=== PATIENT | female | born 1935 | race Caucasian/White ===

== ENCOUNTER 2021-11-25 15:04 | Observation (INO) ==
[2021-11-25] MEDS ORDERED: hydrALAZINE 20 MG/1 ML VIAL IV STA (15:44)
[2021-11-25 16:01] LABS: Basophils # 0.1 10*3/uL (0.0-0.2); Basophils % 0.8 % (0.0-0.8); Eosinophils # 0.3 10*3/uL (0.0-0.87); Eosinophils % 4.8 % (0.00-10.9); Hematocrit 32.6 VOL% (35.7-47.0); Hemoglobin 10.9 GM/DL (12.0-16.0); Immature Granulocytes % 0.2 %; Immature Granulocytes Absolute 0.01 #; Lymphocytes # 1.5 10*3/uL (1.4-4.0); Lymphocytes % 24.3 % (21.3-54.2); Mean Corpuscular HGB Conc 33.4 GM/DL (32-36); Mean Corpuscular Volume 87.9 FL (87-102); Mean Platelet Volume 11.3 FL (9.6-12.0); Monocytes # 0.4 10*3/uL (0.11-0.8); Monocytes % 6.3 % (1.7-12.7); Neutrophils % 63.6 % (38.7-73.9); Platelet Count 164 T/CUMM (130-400); Red Blood Count 3.71 MC/CUMM (3.8-5.5); Red Cell Distribution Width 13.2 % (9.3-17.3); White Blood Count 6.2 T/CUMM (4-12)
[2021-11-25] MEDS ORDERED: ACETAMINOPHEN 325 MG TABLET ONE (16:11)
[2021-11-25 16:41] LABS: Alanine Aminotransferase 18 U/L (13-56); Albumin 4.1 G/DL (3.4-5.0); Alkaline Phosphatase 75 U/L (45-117); Aspartate Amino Transferase 20 U/L (0-37); Bilirubin,Total < 0.39 MG/DL (0.20-1.00); Blood Urea Nitrogen 18 MG/DL (7-18); Calcium 9.7 MG/DL (8.5-10.1); Carbon Dioxide 26 MMOL/L (21-32); Chloride 103 MMOL/L (98-107); Estimated Glom Filtration Rate 56 ML/MIN; Glucose 125 MG/DL (74-106); Osmolality,Calculated 279.5 MOS/KG (273-304); Potassium 3.7 MMOL/L (3.5-5.1); Sodium 139 MMOL/L (136-145)
[2021-11-25] MEDS ORDERED: NAPROXEN 500 MG TABLET ONE ×2 (17:38→17:40)
[2021-11-25] MEDS ORDERED: ACETAMINOPHEN 325 MG TABLET PO ONE (17:59)
[2021-11-25] MEDS ORDERED: NAPROXEN 500 MG TABLET PO STA (18:00)
[2021-11-25] MEDS ORDERED: hydrALAZINE 20 MG/1 ML VIAL IV PRN (19:17)
[2021-11-25] MEDS ORDERED: ONDANSETRON 4 MG/2 ML VIAL IV PRN (19:17)
[2021-11-25] MEDS ORDERED: ACETAMINOPHEN 325 MG TABLET PO PRN (19:17)
[2021-11-25] MEDS ORDERED: GLUCAGON 1 MG VIAL IM PRN (19:17)
[2021-11-25] MEDS ORDERED: LORATADINE 10 MG TABLET PO PRN (19:22)
[2021-11-25] MEDS ORDERED: DEXTROSE 10% 250 ML BAG IV PRN (19:37)
[2021-11-25] MEDS: ENOXAPARIN 40 MG/0.4 ML SYRINGE SUBCUT SCH (20:42)
[2021-11-25] MEDS: METOPROLOL TARTRATE 50 MG TABLET PO SCH (21:07)
[2021-11-25 21:13] LABS: Thyroid Stimulating Hormone 1.35 uIU/ml (0.358-3.74)
[2021-11-26 04:45] LABS: Basophils # 0.1 10*3/uL (0.0-0.2); Basophils % 1.2 % (0.0-0.8); Eosinophils # 0.4 10*3/uL (0.0-0.87); Eosinophils % 7.3 % (0.00-10.9); Immature Granulocytes % 0.2 %; Immature Granulocytes Absolute 0.01 #; Lymphocytes # 1.9 10*3/uL (1.4-4.0); Lymphocytes % 37.5 % (21.3-54.2); Mean Corpuscular HGB Conc 33.3 GM/DL (32-36); Mean Corpuscular Volume 87.5 FL (87-102); Mean Platelet Volume 11.7 FL (9.6-12.0); Monocytes # 0.4 10*3/uL (0.11-0.8); Monocytes % 7.8 % (1.7-12.7); Platelet Count 157 T/CUMM (130-400); Red Blood Count 3.43 MC/CUMM (3.8-5.5); Red Cell Distribution Width 13.2 % (9.3-17.3); White Blood Count 5.1 T/CUMM (4-12)
[2021-11-26] MEDS: CHOLECALCIFEROL 1,000 UNIT TABLET PO SCH (08:43)
[2021-11-26] MEDS: VITAMIN E 400 UNIT CAPSULE PO SCH (08:44)
[2021-11-26] MEDS: FUROSEMIDE 20 MG TABLET PO SCH (08:44)
[2021-11-26] MEDS: CYANOCOBALAMIN 500 MCG TABLET PO SCH (08:44)
[2021-11-26] MEDS: MAGNESIUM OXIDE 400 MG TABLET PO SCH (08:44)
[2021-11-26] MEDS: ASPIRIN EC 81 MG TABLET PO SCH (08:44)
[2021-11-26] MEDS: LEVOTHYROXINE 50 MCG TABLET PO SCH (08:44)
[2021-11-26] MEDS: METOPROLOL TARTRATE 50 MG TABLET PO SCH ×2 (08:44→22:16)
[2021-11-26] MEDS: OLMESARTAN 20 MG TABLET PO SCH (08:44)
[2021-11-26] MEDS: PANTOPRAZOLE 40 MG TABLET PO SCH ×2 (08:44→22:16)
[2021-11-26] MEDS ORDERED: OLMESARTAN 20 MG TABLET PO SCH (09:00)
[2021-11-26] MEDS ORDERED: PANTOPRAZOLE 40 MG TABLET PO SCH (09:00)
[2021-11-26] MEDS: LACTATED RINGERS 1,000 ML IV SCH (15:50)
[2021-11-26] MEDS ORDERED: ATORVASTATIN 10 MG TABLET PO SCH (21:00)
[2021-11-26] MEDS: ENOXAPARIN 40 MG/0.4 ML SYRINGE SUBCUT SCH (22:16)
[2021-11-27] MEDS: VITAMIN E 400 UNIT CAPSULE PO SCH (09:20)
[2021-11-27] MEDS: ASPIRIN EC 81 MG TABLET PO SCH (09:20)
[2021-11-27] MEDS: OLMESARTAN 20 MG TABLET PO SCH (09:20)
[2021-11-27] MEDS: METOPROLOL TARTRATE 50 MG TABLET PO SCH (09:21)
[2021-11-27] MEDS: FUROSEMIDE 20 MG TABLET PO SCH (09:21)
[2021-11-27] MEDS: CYANOCOBALAMIN 500 MCG TABLET PO SCH (09:21)
[2021-11-27] MEDS: CHOLECALCIFEROL 1,000 UNIT TABLET PO SCH (09:21)
[2021-11-27] MEDS: MAGNESIUM OXIDE 400 MG TABLET PO SCH (09:21)
[2021-11-27] MEDS: PANTOPRAZOLE 40 MG TABLET PO SCH (09:22)
[2021-11-27] MEDS ORDERED: ALUMINUM/MAGNES/SIMETH MAX STR 30 ML UDCUP PO ONE (09:30)
[2021-11-27] MEDS: LEVOTHYROXINE 50 MCG TABLET PO SCH (10:13)
[2021-11-27 12:02] VITALS: BP 152/70
[2021-12-01] MEDS ORDERED: LEVOTHYROXINE 75 MCG TABLET PO SCH (06:30)
== END 2021-11-27 11:02 | disposition home or self-care (01) ==
LOC: N.EDINP 15:04 → N.ED 15:04 → N.TELES 22:37
PROVIDERS: ADMIT Internal Medicine; ATTEND Internal Medicine

== ENCOUNTER 2022-07-08 17:02 | Observation (INO) ==
[2022-07-08 17:41] LABS: Albumin 4.5 G/DL (3.4-5.0); Bilirubin,Total 0.4 MG/DL (0.20-1.00); Osmolality,Calculated 270.5 MOS/KG (273-304); Potassium 3.9 MMOL/L (3.5-5.1); Total Protein 7.3 G/DL (6.4-8.2)
[2022-07-08] MEDS ORDERED: NITROGLYCERIN 2% OINT 1 INCH/GM PACK TOP STA (18:46)
[2022-07-08] MEDS ORDERED: ONDANSETRON 4 MG/2 ML VIAL IV ONE (18:46)
[2022-07-08] MEDS ORDERED: HYDROmorphone 1 MG/1 ML SYRINGE IV STA ×2 (18:47→19:32)
[2022-07-08] MEDS ORDERED: SODIUM CHLORIDE 0.9% 500 ML IV STA (18:48)
[2022-07-08 19:00] LABS: Basophils % 0.5 % (0.0-0.8); Eosinophils # 0.2 10*3/uL (0.0-0.87); Eosinophils % 2.3 % (0.00-10.9); Hematocrit 33.2 VOL% (35.7-47.0); Hemoglobin 10.8 GM/DL (12.0-16.0); Immature Granulocytes % 0.3 %; Immature Granulocytes Absolute 0.02 #; Lymphocytes # 1.5 10*3/uL (1.4-4.0); Lymphocytes % 22.8 % (21.3-54.2); Mean Corpuscular HGB Conc 32.5 GM/DL (32-36); Mean Corpuscular Volume 89.7 FL (87-102); Mean Platelet Volume 12.3 FL (9.6-12.0); Monocytes # 0.7 10*3/uL (0.11-0.8); Monocytes % 10.5 % (1.7-12.7); Neutrophils % 63.6 % (38.7-73.9); Platelet Count 179 T/CUMM (130-400); Red Cell Distribution Width 13.1 % (9.3-17.3); White Blood Count 6.5 T/CUMM (4-12)
[2022-07-08 19:10] LABS: INR 0.9; PT Patient Result 10.3 SECS (10.1-12.1); Partial Thromboplastin Time 31.3 SECS (23.7-32.9)
[2022-07-08] MEDS ORDERED: hydrALAZINE 20 MG/1 ML VIAL IV STA ×2 (19:12→20:11)
[2022-07-08] MEDS ORDERED: cloNIDine 0.1 MG TABLET PO STA (19:28)
[2022-07-08] MEDS ORDERED: ONDANSETRON 4 MG/2 ML VIAL IV STA (19:56)
[2022-07-08] MEDS ORDERED: PROMETHAZINE 25 MG/1 ML VIAL IM STA (20:27)
[2022-07-08] MEDS ORDERED: LABETALOL 20 MG/4 ML SYRINGE IV STA (22:18)
[2022-07-08] MEDS ORDERED: LABETALOL 20 MG/4 ML SYRINGE IV ONE (22:19)
[2022-07-08] MEDS ORDERED: NICOTINE 21 MG/24 HR PATCH TRANSDERM PRN (22:35)
[2022-07-08] MEDS ORDERED: hydrALAZINE 20 MG/1 ML VIAL IV PRN (22:35)
[2022-07-08] MEDS ORDERED: guaiFENesin/DM ER 600-30 MG TABLET PO PRN (22:35)
[2022-07-08] MEDS ORDERED: ZALEPLON 5 MG CAPSULE PO PRN (22:35)
[2022-07-08] MEDS ORDERED: ONDANSETRON 4 MG/2 ML VIAL IV PRN (22:35)
[2022-07-08] MEDS ORDERED: diphenhydrAMINE CAP 25 MG CAPSULE PO PRN (22:35)
[2022-07-08] MEDS ORDERED: PROMETHAZINE 25 MG/1 ML VIAL IM PRN (22:35)
[2022-07-08] MEDS ORDERED: ACETAMINOPHEN 325 MG TABLET PO PRN (22:35)
[2022-07-08] MEDS ORDERED: SODIUM CHLORIDE 0.9% 1,000 ML IV SCH (23:00)
[2022-07-09 02:24] LABS: Basophils % 0.2 % (0.0-0.8); Eosinophils % 0.2 % (0.00-10.9); Hematocrit 28.7 VOL% (35.7-47.0); Hemoglobin 9.6 GM/DL (12.0-16.0); Immature Granulocytes % 0.5 %; Immature Granulocytes Absolute 0.03 #; Lymphocytes # 0.5 10*3/uL (1.4-4.0); Lymphocytes % 8.2 % (21.3-54.2); Mean Corpuscular HGB Conc 33.4 GM/DL (32-36); Mean Corpuscular Volume 87.8 FL (87-102); Mean Platelet Volume 11.6 FL (9.6-12.0); Monocytes # 0.3 10*3/uL (0.11-0.8); Monocytes % 3.9 % (1.7-12.7); Platelet Count 128 T/CUMM (130-400); Red Blood Count 3.27 MC/CUMM (3.8-5.5); Red Cell Distribution Width 13.2 % (9.3-17.3); White Blood Count 6.4 T/CUMM (4-12)
[2022-07-09 02:36] LABS: Calcium 8.1 MG/DL (8.5-10.1); Osmolality,Calculated 274.2 MOS/KG (273-304); Potassium 3.7 MMOL/L (3.5-5.1)
[2022-07-09] MEDS ORDERED: cloNIDine 0.1 MG TABLET PO PRN (06:50)
[2022-07-09] MEDS ORDERED: LEVOTHYROXINE 50 MCG TABLET PO SCH (07:30)
[2022-07-09] MEDS ORDERED: LORATADINE 10 MG TABLET PO PRN (08:23)
[2022-07-09] MEDS ORDERED: FAMOTIDINE 20 MG/2 ML VIAL IV SCH (09:00)
[2022-07-09] MEDS ORDERED: CYANOCOBALAMIN 500 MCG TABLET PO SCH (09:00)
[2022-07-09] MEDS ORDERED: METOPROLOL TARTRATE 50 MG TABLET PO SCH (09:00)
[2022-07-09] MEDS ORDERED: CHOLECALCIFEROL 5,000 UNIT TABLET PO SCH (09:00)
[2022-07-09] MEDS ORDERED: MAGNESIUM SULF RIDER 2 GM/50 ML PREMIX IV ONE (09:00)
[2022-07-09] MEDS ORDERED: HEPARIN 5,000 UNIT/1 ML VIAL SUBCUT SCH (09:00)
[2022-07-09] MEDS ORDERED: PANTOPRAZOLE 40 MG TABLET PO SCH (11:00)
[2022-07-09 12:10] VITALS: BP 160/41
[2022-07-09] MEDS ORDERED: ATORVASTATIN 10 MG TABLET PO SCH (21:00)
[2022-07-09] MEDS ORDERED: ASPIRIN EC 81 MG TABLET PO SCH (21:00)
[2022-07-13] MEDS ORDERED: LEVOTHYROXINE 75 MCG TABLET PO SCH (06:30)
[2022-07-16 12:06] LABS: Urine Volume 2125 mL
[2022-07-16 21:56] LABS: Normetanephrine, U 455 mcg/24 h; Total Metanephrines, U 540 mcg/24 h; Urine Volume 2125 mL
== END 2022-07-09 15:08 | disposition home or self-care (01) ==
LOC: N.5E 17:02 → N.ED 17:02 → SUATTDRO 22:35 → N.5E 23:43
PROVIDERS: ADMIT Internal Medicine Geriatric Medicine; ATTEND Internal Medicine